=== PATIENT | female | born 1965 | race African-American/Black ===

== ENCOUNTER 2019-08-26 09:36 | Emergency (ER) | payer BC, OTHER ==
[2019-08-26] MEDS ORDERED: IPRATROPIUM BROM 0.5MG/2.5ML ONE (10:41)
[2019-08-26] MEDS ORDERED: ALBUTEROL 2.5 MG/3 ML NEB SOL ONE (10:41)
[2019-08-26] MEDS ORDERED: predniSONE 20 MG TAB ONE (10:47)
--- NOTE | 2019-08-26 11:38 | ER ---
Nurse's Notes [facility] Name: Luisa Mackenzie Age: 53 yrs Sex: Female : 1965 Arrival Date: 08/26/2019 Time: 09:38 Bed 18 Private MD: Diagnosis: Unspecified asthma with (acute) exacerbation Presentation: 08/26 09:55 Presenting complaint: SOB, chest tightness, and sinus congestion x 3 days. Hx of hb asthma. Transition of care: patient was not received from another setting of care. Onset of symptoms was August 23, 2019. Risk Assessment: Do you want to hurt yourself or someone else? Patient reports no desire to harm self or others. Initial Sepsis Screen: Does the patient meet any 2 criteria? No. Patient's initial sepsis screen is negative. Does the patient have a suspected source of infection? No. Patient's initial sepsis screen is negative. Care prior to arrival: None. 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 - Social history:: Smoking status: Patient/guardian denies using tobacco. - Ebola Screening: : No symptoms or risks identified at this time. Screenin:35 Abuse screen: Denies threats or abuse. Nutritional screening: No deficits noted. em Tuberculosis screening: No symptoms or risk factors identified. Fall Risk None identified. Assessment: 10:35 General: Appears in no apparent distress. comfortable, Behavior is calm, cooperative, em appropriate for age, Denies fever. Pain: Complains of pain in chest Pain does not radiate. Pain currently is 2 out of 10 on a pain scale. Quality of pain is described as tightness Pain began 2-3 days ago. Neuro: Level of Consciousness is awake, alert, obeys commands, Oriented to person, place, time, situation, Appropriate for age. Cardiovascular: Capillary refill < 3 seconds Patient's skin is warm and dry. Rhythm is regular. Respiratory: Reports shortness of breath on exertion cough that is non-productive, Airway is patent Respiratory effort is even, unlabored, Respiratory pattern is regular, symmetrical, Breath sounds with wheezes bilaterally. GI: Patient currently denies nausea, vomiting. EENT: Reports nasal congestion since 3 days ago. Derm: Skin is intact, is healthy with good turgor, Skin is pink, warm \T\ dry. Musculoskeletal: Capillary refill < 3 seconds, Range of motion: intact in all extremities. 10:40 Reassessment: I agree with previous assessment. hb 11:44 Reassessment: Patient appears in no apparent distress at this time. Patient and/or em family updated on plan of care and expected duration. Pain level reassessed. Patient is alert, oriented x 3, equal unlabored respirations, skin warm/dry/pink. Patient states symptoms have improved. Vital Signs: 09:57 BP 150 / 89; Pulse 99; Resp 20; Temp 98.1; Pulse Ox 94% on R/A; Weight 85.28 kg; Height hb 5 ft. 9 in. (175.26 cm); Pain 2/10; 11:00 BP 137 / 75; Pulse 95; Resp 18; Pulse Ox 100% on R/A; em 09:57 Body Mass Index 27.76 (85.28 kg, 175.26 cm) hb ED Course: 09:38 Patient arrived in ED. as 09:56 Triage completed. hb 09:57 Arm band placed on. hb 10:01 [facility]C [facility] kb 10:01 Demian Palmer MD is Attending Physician. kb 10:31 Truong Terry LVN is Primary Nurse. em 10:35 Patient has correct armband on for positive identification. Bed in low position. Call em light in reach. Pulse ox on. NIBP on. 10:35 Patient maintains SpO2 saturation greater than 95% on room air. em 11:43 No provider procedures requiring assistance completed. Patient did not have IV access em during this emergency room visit. Administered Medications: 10:43 Drug: DuoNeb (3:1) (2.5 mg - 0.5 mg) 3 ml Route: Nebulizer; em 11:09 Follow up: Response: No adverse reaction; Marked relief of symptoms em 11:08 Drug: predniSONE 40 mg Route: PO; em 11:49 Follow up: Response: No adverse reaction em Outcome: 11:37 Discharge ordered by MD. cobos 11:43 Discharged to home ambulatory. em 11:43 Condition: good 11:43 Discharge instructions given to patient, Instructed on discharge instructions, follow up and referral plans. medication usage, Demonstrated understanding of instructions, follow-up care, medications, Prescriptions given X 2. 11:50 Patient left the ED. em Signatures: Shae Turpin, POWER SWITCHBOARD OPERATOR-C POWER SWITCHBOARD OPERATOR-CkTruong Moulton, BONE DRIER BONE DRIER em Kimmie Antunez Heather, RN RN hb
--- NOTE | 2019-08-26 11:38 | EDPHYS ---
Physician Documentation [facility] Name: Luisa Mackenzie Age: 53 yrs Sex: Female : 1965 Arrival Date: 08/26/2019 Time: 09:38 Bed 18 Private MD: ED Physician Demian Palmer HPI: 08/26 11:35 This 53 yrs old Black Female presents to ER via Ambulatory with complaints of Sinus kb Congestion, Chest Tightness. 11:35 The patient has experienced similar episodes in the past. The patient has not recently kb seen a physician. 11:35 The patient or guardian reports cough, difficulty breathing. Onset: The kb symptoms/episode began/occurred 3 day(s) ago. Severity of symptoms: At their worst the symptoms were moderate, in the emergency department the symptoms are unchanged. Modifying factors: The symptoms are alleviated by nothing, the symptoms are aggravated by nothing. Associated signs and symptoms: Pertinent positives: chest tightness. Pt reports her asthma has been acting up since dusting a few days ago. Reports shortness of breath, wheezing and tightness. Ran out of albuterol neb solution last month. 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 - Social history:: Smoking status: Patient/guardian denies using tobacco. - Ebola Screening: : No symptoms or risks identified at this time. ROS: 11:35 Constitutional: Negative for fever, chills, and weight loss, ENT: Negative for injury, kb pain, and discharge, Neck: Negative for injury, pain, and swelling, Cardiovascular: Negative for chest pain, palpitations, and edema, Abdomen/GI: Negative for abdominal pain, nausea, vomiting, diarrhea, and constipation, Back: Negative for injury and pain, MS/Extremity: Negative for injury and deformity, Skin: Negative for injury, rash, and discoloration, Neuro: Negative for headache, weakness, numbness, tingling, and seizure. 11:35 Respiratory: Positive for cough, with no reported sputum, shortness of breath, wheezing. Exam: 11:34 Constitutional: This is a well developed, well nourished patient who is awake, alert, kb and in no acute distress. Head/Face: Normocephalic, atraumatic. ENT: Nares patent. No nasal discharge, no septal abnormalities noted. Tympanic membranes are normal and external auditory canals are clear. Oropharynx with no redness, swelling, or masses, exudates, or evidence of obstruction, uvula midline. Mucous membranes moist. Neck: Trachea midline, no thyromegaly or masses palpated, and no cervical lymphadenopathy. Supple, full range of motion without nuchal rigidity, or vertebral point tenderness. No Meningismus. Chest/axilla: Normal chest wall appearance and motion. Nontender with no deformity. No lesions are appreciated. Cardiovascular: Regular rate and rhythm with a normal S1 and S2. No gallops, murmurs, or rubs. Normal PMI, no JVD. No pulse deficits. Abdomen/GI: Soft, non-tender, with normal bowel sounds. No distension or tympany. No guarding or rebound. No evidence of tenderness throughout. Skin: Warm, dry with normal turgor. Normal color with no rashes, no lesions, and no evidence of cellulitis. MS/ Extremity: Pulses equal, no cyanosis. Neurovascular intact. Full, normal range of motion. Neuro: Awake and alert, GCS 15, oriented to person, place, time, and situation. Cranial nerves II-XII grossly intact. Motor strength 5/5 in all extremities. Sensory grossly intact. Cerebellar exam normal. Normal gait. 11:34 Respiratory: the patient does not display signs of respiratory distress, Respirations: normal, Breath sounds: wheezing: expiratory is heard diffusely. Vital Signs: 09:57 BP 150 / 89; Pulse 99; Resp 20; Temp 98.1; Pulse Ox 94% on R/A; Weight 85.28 kg; Height hb 5 ft. 9 in. (175.26 cm); Pain 2/10; 11:00 BP 137 / 75; Pulse 95; Resp 18; Pulse Ox 100% on R/A; em 09:57 Body Mass Index 27.76 (85.28 kg, 175.26 cm) hb MDM: 10:33 Patient medically screened. kb 11:34 Data reviewed: vital signs, nurses notes. Data interpreted: Pulse oximetry: on room air kb is 97 %. Interpretation: normal. Counseling: I had a detailed discussion with the patient and/or guardian regarding: the historical points, exam findings, and any diagnostic results supporting the discharge/admit diagnosis, the need for outpatient follow up, a family practitioner, to return to the emergency department if symptoms worsen or persist or if there are any questions or concerns that arise at home. Response to treatment: the patient's symptoms have resolved after treatment, the patient is not short of breath, wheezing has resolved. Administered Medications: 10:43 Drug: DuoNeb (3:1) (2.5 mg - 0.5 mg) 3 ml Route: Nebulizer; em 11:09 Follow up: Response: No adverse reaction; Marked relief of symptoms em 11:08 Drug: predniSONE 40 mg Route: PO; em 11:49 Follow up: Response: No adverse reaction em Disposition: 17:43 Co-signature as Attending Physician, Demian Palmer MD Did not see or evaluate the ps1 patient. Signing the chart for administrative purposes. Not an endorsement of care provided. . Disposition: 08/26/19 11:37 Discharged to Home. Impression: Unspecified asthma with (acute) exacerbation. - Condition is Stable. - Discharge Instructions: Asthma, Adult, [id number]. - Prescriptions for Prednisone 20 mg Oral Tablet - take 1 tablet by ORAL route once daily for 5 days; 5 tablet. Albuterol Sulfate 2.5 mg /3 mL (0.083 %) Inhalation Solution for Nebulization - inhale 1 unit by NEBULIZATION route every 8 hours As needed; 1 box. - Medication Reconciliation Form, Thank You Letter, Antibiotic Education, Prescription Opioid Use form. - Follow up: Emergency Department; When: As needed; Reason: Worsening of condition. Follow up: Private Physician; When: 2 - 3 days; Reason: Recheck today's complaints, Continuance of care, Re-evaluation by your physician. Signatures: Shae Turpin FNP-C FNP-Truong Persaud, ORTHODONTIC BAND MAKER ORTHODONTIC BAND MAKER em Anny Goyal, RN RN Demian Leroy MD MD ps1 Corrections: (The following items were deleted from the chart) 11:50 11:37 08/26/2019 11:37 Discharged to Home. Impression: Unspecified asthma with (acute) em exacerbation. Condition is Stable. Forms are Medication Reconciliation Form, Thank You Letter, Antibiotic Education, Prescription Opioid Use. Follow up: Emergency Department; When: As needed; Reason: Worsening of condition. Follow up: Private Physician; When: 2 - 3 days; Reason: Recheck today's complaints, Continuance of care, Re-evaluation by your physician. kb
[2019-08-26 11:56] VITALS: TEMP 98.1
[2019-08-26 11:57] VITALS: BP 137/75; O2SAT 100
== END 2019-08-26 11:50 | disposition home or self-care (01) ==
LOC: ER 09:36
DX: J45.901 Unspecified asthma with (acute) exacerbation (principal)
CPT/HCPCS: 94640; 99284; J7512

== ENCOUNTER 2021-11-26 12:48 | Emergency (ER) | payer BC ==
--- OUTSIDE RECORDS SUMMARY | 2021-11-26 13:16 | XMS REPORT | Continuity of Care Document ---
:1965 Author Organization [facility] t Address [address] [place] [address] Care Team Providers Name Role Phone [phone] Primary Care Physician Unavailable Zion BUTLER Attending Clinician Unavailable Payers Payer Name Policy Type Policy Number Effective Date Expiration Date S re[place] [employer] [place] PPO POS [id number] 00:00:00 Problems This patient has no known problems. Allergies, Adverse Reactions, Alerts This patient has no known allergies or adverse reactions. Medications This patient has no known medications. Procedures This patient has no known procedures. Encounters Start End Encounter Admission Attending Care Care Encounter Source Date/Time Date/Time Type Type Clinicians Facility Department ID 2021-04-16 2021-04-16 Outpatient [facility] [id number] 10:15:00 23:59:00 Bhargav o n 2021-04-16 2021-04-16 [facility] [id number] 11:50:41 13:22:30 Bhargav o n 2020-03-27 2020-03-27 Out[facility] [id number] 10:27:09 23:59:00 Bhargav o n 2020-03-27 2020-03-27 Outpatient [facility] [id number] 12:01:57 12:01:57 Bhargav o n 2020-03-27 2020-03-27 Outpatient [facility] [id number] 11:07:59 11:07:59 Bhargav o n Results This patient has no known results.
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
[2021-11-26 17:54] VITALS: TEMP 98.8
[2021-11-26 17:57] VITALS: BP 121/70; O2SAT 98
== END 2021-11-26 17:09 | disposition home or self-care (01) ==
LOC: ER 12:48
DX: M54.12 Radiculopathy, cervical region (principal); V49.40XA Driver injured in collision with unspecified motor vehicles in traffic accident, initial encounter; Z85.3 Personal history of malignant neoplasm of breast
CPT/HCPCS: 72125; 99283